=== PATIENT | male | born 1950 | race Caucasian/White ===

== ENCOUNTER 2017-07-10 18:58 | Emergency (ER) | payer BC, MEDICARE ==
[~2017-07-10] VITALS: Ht 188 cm; Wt 113.6 kg
[~2017-07-10 18:58] MED LIST: ASPRIN; CELEXA20 MG PO; CHOLESTEROL MED; LIPITOR40 MG PO; NASONEX SPRAY; VICODIN 5/5001 UDTAB PO; XALATAN EYE DROPS OD; ZOCOR 40MG40 MG PO
[2017-07-10 19:06] VITALS: TEMP 98.2
[2017-07-10] MEDS ORDERED: PRAVACHOL 40MG40 MG PO (19:20)
[2017-07-10] MEDS ORDERED: PROSCAR 5MG5 MG PO (19:21)
[2017-07-10] MEDS ORDERED: FLOMAX 0.40.4 MG/CAP PO (19:21)
[2017-07-10 19:36] LABS: BASO # 0.1 (0.0-0.2); BASO % 0.9 % (0.0-2.0); EOS # 0.2 (0.0-0.7); EOS % 3.2 % (0-4.0); GRAN # 3.1 (1.4-6.5); HEMATOCRIT 45.8 % (42.0-52.0); HEMOGLOBIN 15.3 g/dl (13.5-18.0); LYMPH # 2.2 (1.2-3.4); LYMPH % 36.9 % (20.0-51.0); MEAN CELL VOLUME 88 fl (80.0-100.0); MEAN CORPUSCULAR HEMOGLOBIN 29 pg (27.0-31.0); MEAN CORPUSCULAR HGB CONC 33 g/dl (33.0-37.0); MEAN PLATELET VOLUME 9.6 fl (7.4-10.4); MONO # 0.3 (0.1-0.6); MONO % 5.8 % (1.7-9.3); PLATELET COUNT 150 K/mm3 (130-400); REDCELL DISTRIBUTION WIDTH-CV 13.3 % (11.5-14.5)
[2017-07-10 19:37] LABS: ALANINE AMINOTRANSFERASE 46 U/L (21-72); ALKALINE PHOSPHATASE 58 U/L (50-136); ANION GAP 8 mmol/L (7-16); AST,SGOT 19 U/L (15-37); BILIRUBIN,TOTAL 0.9 mg/dL (0.0-1.0); BLOOD UREA NITROGEN 21 mg/dL (9-20); CALCIUM 9.3 mg/dL (8.4-10.2); CARBON DIOXIDE 26 mmol/L (22-30); CHLORIDE 108 mmol/L (98-107); CREATININE, serum 1.04 mg/dL (0.66-1.25); GLUCOSE 98 mg/dL (74-106); LIPASE 61 U/L (23-300); POTASSIUM 3.8 mmol/L (3.4-5.0); SODIUM 142 mmol/L (137-145); TOTAL PROTEIN 6.9 gm/dL (6.4-8.2)
[2017-07-10 19:54] LABS: C-REACTIVE PROTEIN < 0.5 mg/dL (0.0-0.9); TROPONIN-I < 0.012 ng/mL (0.000-0.034)
[2017-07-10] MEDS ORDERED: PROTONIX 40MG T40 MG PO (21:35)
[2017-07-10 21:37] VITALS: BP 111/76; PULSE 57
== END 2017-07-10 21:45 | disposition home or self-care (01) ==
LOC: COL.ER 18:58
PROVIDERS: Emergency Medicine
DX: R07.89 Other chest pain (principal); K21.9 Gastro-esophageal reflux disease without esophagitis; E78.5 Hyperlipidemia, unspecified; Z85.46 Personal history of malignant neoplasm of prostate

== ENCOUNTER 2017-11-29 13:53 | Observation (INO) | payer BC, MEDICARE ==
[2017-11-29] VITALS (7 sets, daily range): BP systolic 109–122; BP diastolic 66–88; PULSE 63–82; TEMP 97.8–98.2
[~2017-11-29] VITALS: Ht 193 cm; Wt 112.0 kg
[~2017-11-29 13:53] MED LIST changes: +FLOMAX 0.40.4 MG/CAP PO; +PRAVACHOL 40MG40 MG PO; +PROSCAR 5MG5 MG PO; +PROTONIX 40MG T40 MG PO
[2017-11-29] MEDS ORDERED: CYMBALTA 60MG60 MG PO (14:05)
[2017-11-29 14:16] LABS: BASO % 0.6 % (0.0-2.0); EOS # 0.1 (0.0-0.7); GRAN # 4.3 (1.4-6.5); GRAN % 68.1 % (42.2-75.2); HEMATOCRIT 43.8 % (42.0-52.0); HEMOGLOBIN 15.3 g/dl (13.5-18.0); LYMPH # 1.6 (1.2-3.4); LYMPH % 25.5 % (20.0-51.0); MEAN CELL VOLUME 85 fl (80.0-100.0); MEAN CORPUSCULAR HEMOGLOBIN 30 pg (27.0-31.0); MEAN CORPUSCULAR HGB CONC 35 g/dl (33.0-37.0); MEAN PLATELET VOLUME 9.7 fl (7.4-10.4); MONO # 0.3 (0.1-0.6); MONO % 4.5 % (1.7-9.3); PLATELET COUNT 149 K/mm3 (130-400); RED BLOOD COUNT 5.15 M/mm3 (4.20-5.60); REDCELL DISTRIBUTION WIDTH-CV 13.5 % (11.5-14.5)
[2017-11-29 14:27] LABS: ALANINE AMINOTRANSFERASE 32 U/L (21-72); ALBUMIN 3.8 gm/dL (3.5-5.0); ALKALINE PHOSPHATASE 65 U/L (50-136); ANION GAP 12 mmol/L (7-16); AST,SGOT 22 U/L (15-37); BILIRUBIN,TOTAL 1.6 mg/dL (0.0-1.0); BLOOD UREA NITROGEN 14 mg/dL (9-20); CALCIUM 9.1 mg/dL (8.4-10.2); CARBON DIOXIDE 24 mmol/L (22-30); CHLORIDE 105 mmol/L (98-107); CREATININE, serum 0.84 mg/dL (0.66-1.25); GLUCOSE 142 mg/dL (74-106); MAGNESIUM 2.1 mg/dL (1.6-2.3); PHOSPHOROUS 3.1 mg/dL (2.5-4.5); POTASSIUM 3.5 mmol/L (3.4-5.0); SODIUM 142 mmol/L (137-145)
[2017-11-29 14:39] LABS: TROPONIN-I < 0.012 ng/mL (0.000-0.034)
[2017-11-29 14:43] LABS: INR 1.1 (0.8-3.0); PROTHROMBIN TIME 12.1 SECONDS (9.7-12.8)
[2017-11-29 14:46] LABS: PARTIAL THROMBOPLASTIN TIME 35.5 SECONDS (26.0-37.0)
[2017-11-29 14:47] LABS: D-DIMER < 200.00 ng/mLDDu (200-230)
[2017-11-30] VITALS (10 sets, daily range): BP systolic 114–135; BP diastolic 72–79; PULSE 58–83; TEMP 97.7–98.9
[2017-12-01 03:05] VITALS: BP 118/64; PULSE 71; TEMP 98.1
[2017-12-01 07:38] LABS: BASO % 0.8 % (0.0-2.0); EOS # 0.1 (0.0-0.7); EOS % 2.9 % (0-4.0); GRAN # 2.8 (1.4-6.5); GRAN % 57.8 % (42.2-75.2); HEMATOCRIT 41.9 % (42.0-52.0); HEMOGLOBIN 14.1 g/dl (13.5-18.0); LYMPH # 1.5 (1.2-3.4); LYMPH % 29.7 % (20.0-51.0); MEAN CELL VOLUME 87 fl (80.0-100.0); MEAN CORPUSCULAR HEMOGLOBIN 29 pg (27.0-31.0); MEAN CORPUSCULAR HGB CONC 34 g/dl (33.0-37.0); MEAN PLATELET VOLUME 9.6 fl (7.4-10.4); MONO # 0.4 (0.1-0.6); MONO % 8.6 % (1.7-9.3); PLATELET COUNT 140 K/mm3 (130-400); RED BLOOD COUNT 4.82 M/mm3 (4.20-5.60); REDCELL DISTRIBUTION WIDTH-CV 13.7 % (11.5-14.5)
[2017-12-01 07:54] LABS: CALCIUM 8.5 mg/dL (8.4-10.2); CREATININE, serum 0.75 mg/dL (0.66-1.25)
[2017-12-01 08:10] VITALS: BP 120/70; PULSE 71; TEMP 97.8
[2017-12-01 11:20] VITALS: BP 140/80; PULSE 71; TEMP 98.7
== END 2017-12-01 11:50 | disposition home or self-care (01) ==
LOC: COL.ER 13:53 → MEDICAL 15:30
PROVIDERS: Emergency Medicine; Physician Assistant
DX: R55 Syncope and collapse (principal); E78.5 Hyperlipidemia, unspecified; C61 Malignant neoplasm of prostate; G89.29 Other chronic pain; R10.30 Lower abdominal pain, unspecified; I08.1 Rheumatic disorders of both mitral and tricuspid valves; Z90.49 Acquired absence of other specified parts of digestive tract
CPT/HCPCS: G0378; G8978-GP; G8979-GP; G8987-GO; G8988-GO; J1650; J1815; J7030

== ENCOUNTER → 2017-12-18 | Outpatient (CLI) | payer BC ==
[~2017-12-18] MED LIST changes: +CYMBALTA 60MG60 MG PO
== END ==
LOC: COL.CARD 09:26
DX: R55 Syncope and collapse (principal); E16.2 Hypoglycemia, unspecified

== ENCOUNTER 2018-01-17 12:31 | Emergency (ER) | payer BC, MEDICARE ==
[~2018-01-17] VITALS: Ht 193 cm; Wt 113.6 kg
[2018-01-17 12:36] VITALS: TEMP 98.3
[2018-01-17 13:33] LABS: BASO % 0.8 % (0.0-2.0); EOS # 0.1 (0.0-0.7); GRAN # 2.8 (1.4-6.5); GRAN % 56.6 % (42.2-75.2); HEMATOCRIT 40.3 % (42.0-52.0); LYMPH # 1.7 (1.2-3.4); LYMPH % 33.5 % (20.0-51.0); MEAN CELL VOLUME 85 fl (80.0-100.0); MEAN CORPUSCULAR HEMOGLOBIN 30 pg (27.0-31.0); MEAN CORPUSCULAR HGB CONC 35 g/dl (33.0-37.0); MEAN PLATELET VOLUME 9.3 fl (7.4-10.4); MONO # 0.3 (0.1-0.6); MONO % 6.9 % (1.7-9.3); PLATELET COUNT 151 K/mm3 (130-400); RED BLOOD COUNT 4.72 M/mm3 (4.20-5.60); REDCELL DISTRIBUTION WIDTH-CV 13.5 % (11.5-14.5)
[2018-01-17 13:43] LABS: ALANINE AMINOTRANSFERASE 42 U/L (21-72); ALBUMIN 3.8 gm/dL (3.5-5.0); ALKALINE PHOSPHATASE 54 U/L (50-136); ANION GAP 9 mmol/L (7-16); AST,SGOT 27 U/L (15-37); BILIRUBIN,TOTAL 1.1 mg/dL (0.0-1.0); BLOOD UREA NITROGEN 15 mg/dL (9-20); CALCIUM 9.1 mg/dL (8.4-10.2); CARBON DIOXIDE 25 mmol/L (22-30); CHLORIDE 105 mmol/L (98-107); CREATININE, serum 0.79 mg/dL (0.66-1.25); GLUCOSE 105 mg/dL (74-106); SODIUM 139 mmol/L (137-145); TOTAL PROTEIN 6.4 gm/dL (6.4-8.2)
[2018-01-17 13:54] LABS: TROPONIN-I < 0.012 ng/mL (0.000-0.034)
[2018-01-17] MEDS ORDERED: LEXAPRO 10MG10 MG PO (14:32)
[2018-01-17] MEDS ORDERED: ASPIRIN 32325 MG/TAB PO (14:33)
[2018-01-17] MEDS ORDERED: TEGRETOL 1100 MG/TAB PO (17:35)
[2018-01-17 18:13] VITALS: BP 121/79; PULSE 57
== END 2018-01-17 18:18 | disposition home or self-care (01) ==
LOC: COL.ER 12:31
PROVIDERS: Emergency Medicine
DX: M79.601 Pain in right arm (principal); R51 Headache; Z79.82 Long term (current) use of aspirin
CPT/HCPCS: A9585

== ENCOUNTER → 2018-02-13 | Outpatient (CLI) | payer BC ==
[~2018-02-13] MED LIST changes: +ASPIRIN 32325 MG/TAB PO; +LEXAPRO 10MG10 MG PO; +TEGRETOL 1100 MG/TAB PO
== END ==
LOC: COL.CARD 12:19
DX: R55 Syncope and collapse (principal)

== ENCOUNTER → 2018-03-15 | Outpatient (CLI) | payer BC ==
[~2018-03-15] VITALS: Ht 188 cm; Wt 116.5 kg
[2018-03-15 09:15] VITALS: BP 130/77; PULSE 60
[2018-03-15 10:25] VITALS: BP 130/77; PULSE 57
== END ==
LOC: COL.RAD 08:26
DX: E07.89 Other specified disorders of thyroid (principal)

== ENCOUNTER 2018-04-03 09:58 | Outpatient (CLI) | payer BC ==
[~2018-04-03] VITALS: Ht 188 cm; Wt 118.2 kg
[2018-04-03 11:43] VITALS: BP 129/69; PULSE 60; TEMP 98
== END 2018-04-03 15:00 | disposition home or self-care (01) ==
LOC: COL.CAR 09:58
DX: R55 Syncope and collapse (principal); J30.9 Allergic rhinitis, unspecified; K21.9 Gastro-esophageal reflux disease without esophagitis; E78.5 Hyperlipidemia, unspecified; M19.90 Unspecified osteoarthritis, unspecified site; R42 Dizziness and giddiness; N45.2 Orchitis; Z79.82 Long term (current) use of aspirin; Z79.01 Long term (current) use of anticoagulants; Z90.49 Acquired absence of other specified parts of digestive tract; Z86.73 Personal history of transient ischemic attack (TIA), and cerebral infarction without residual deficits; Z85.46 Personal history of malignant neoplasm of prostate; Z81.8 Family history of other mental and behavioral disorders; Z82.49 Family history of ischemic heart disease and other diseases of the circulatory system

== ENCOUNTER → 2018-04-17 | Outpatient (CLI) | payer MEDICARE | LOC: COL.VAS 07:58 | DX: G45.9 Transient cerebral ischemic attack, unspecified (principal) ==

== ENCOUNTER 2019-07-29 20:30 | Emergency (ER) | payer MEDICARE ==
[~2019-07-29] VITALS: Ht 190.5 cm; Wt 122.7 kg
[2019-07-29 21:05] LABS: BASO % 0.6 % (0.0-2.0); EOS # 0.1 (0.0-0.7); EOS % 1.9 % (0-4.0); GRAN # 3.7 (1.4-6.5); GRAN % 53.8 % (42.2-75.2); HEMATOCRIT 47.5 % (42.0-52.0); LYMPH # 2.5 (1.2-3.4); LYMPH % 36.7 % (20.0-51.0); MEAN CELL VOLUME 87 fl (80.0-100.0); MEAN CORPUSCULAR HEMOGLOBIN 29 pg (27.0-31.0); MEAN CORPUSCULAR HGB CONC 34 g/dl (33.0-37.0); MEAN PLATELET VOLUME 9.7 fl (7.4-10.4); MONO # 0.5 (0.1-0.6); MONO % 6.7 % (1.7-9.3); PLATELET COUNT 170 K/mm3 (130-400); RED BLOOD COUNT 5.47 M/mm3 (4.20-5.60); REDCELL DISTRIBUTION WIDTH-CV 13.1 % (11.5-14.5)
[2019-07-29 21:07] LABS: PROTHROMBIN TIME 12.1 SECONDS (9.7-12.8)
[2019-07-29 21:10] LABS: ALANINE AMINOTRANSFERASE 31 U/L (21-72); ALBUMIN 4.3 gm/dL (3.5-5.0); ALKALINE PHOSPHATASE 72 U/L (50-136); ANION GAP 6 mmol/L (7-16); AST,SGOT 24 U/L (15-37); BLOOD UREA NITROGEN 16 mg/dL (9-20); CALCIUM 9.4 mg/dL (8.4-10.2); CARBON DIOXIDE 31 mmol/L (22-30); CHLORIDE 103 mmol/L (98-107); CREATININE, serum 0.93 (0.66-1.25); GLUCOSE 112 mg/dL (74-106); POTASSIUM 3.7 mmol/L (3.4-5.0); SODIUM 140 mmol/L (137-145); TOTAL PROTEIN 7.3 gm/dL (6.4-8.2)
[2019-07-29 21:26] LABS: TROPONIN-I < 0.012 ng/mL (0.000-0.035)
[2019-07-29 21:28] LABS: PARTIAL THROMBOPLASTIN TIME 32.5 SECONDS (26.0-37.0)
[2019-07-29 23:36] VITALS: BP 116/76; PULSE 62; TEMP 98.4
== END 2019-07-29 23:46 | disposition home or self-care (01) ==
LOC: COL.ER 20:30
PROVIDERS: Family Medicine
DX: R10.11 Right upper quadrant pain (principal); I10 Essential (primary) hypertension; E78.5 Hyperlipidemia, unspecified; Z90.89 Acquired absence of other organs
CPT/HCPCS: J2270; J2405; Q9967

== ENCOUNTER → 2020-08-31 | Outpatient (CLI) | payer MEDICARE ==
[~2020-08-31] VITALS: Ht 190.5 cm; Wt 129.0 kg
[~2020-08-31] MED LIST changes: +LIPITOR20 MG PO
[2020-08-31 08:58] VITALS: BP 130/84; PULSE 69
[2020-08-31 10:25] VITALS: BP 125/82; PULSE 63
== END ==
LOC: COL.RAD 08:32
DX: E04.1 Nontoxic single thyroid nodule (principal)

== ENCOUNTER → 2021-09-06 | Outpatient (RCR) | payer MEDICARE | END | disposition home or self-care (01) | LOC: WSPT | DX: M62.08 Separation of muscle (nontraumatic), other site (principal) ==

== ENCOUNTER 2021-09-27 13:00 | Outpatient (RCR) | payer MEDICARE | END 2021-09-27 14:00 | disposition home or self-care (01) | LOC: WSPT 13:00 | DX: M62.08 Separation of muscle (nontraumatic), other site (principal) ==

== ENCOUNTER 2023-08-07 15:00 | Outpatient (RCR) | payer MEDICARE | END 2023-08-09 | disposition home or self-care (01) | LOC: WSPT | DX: M54.41 Lumbago with sciatica, right side (principal) ==

== ENCOUNTER 2023-09-04 15:00 | Outpatient (RCR) | payer MEDICARE | END 2023-09-07 | disposition home or self-care (01) | LOC: WSPT | DX: M54.41 Lumbago with sciatica, right side (principal) ==